=== PATIENT | male | born 1960 | race African-American/Black ===

== ENCOUNTER 2023-02-09 21:04 | Emergency (ER) | payer MEDICAID ==
[~2023-02-09] VITALS: Ht 170.2 cm; Wt 70.0 kg
[2023-02-09 21:07] VITALS: TEMP 98.7; O2SAT 99
[2023-02-09] MEDS ORDERED: IBUPROFEN 600MG TABLET PO ONE (21:30)
[2023-02-09] MEDS ORDERED: IBUP-2029 MT (23:08)
[2023-02-09 23:33] VITALS: BP 132/87; PULSE 87; RESP 18
== END 2023-02-09 23:56 | disposition home or self-care (01) ==
LOC: ER 21:04
DX: S93.602A Unspecified sprain of left foot, initial encounter (principal); I89.0 Lymphedema, not elsewhere classified; W18.39XA Other fall on same level, initial encounter; Y93.89 Activity, other specified; Y92.89 Other specified places as the place of occurrence of the external cause; Y99.8 Other external cause status
CPT/HCPCS: 73620; 99283

== ENCOUNTER 2023-02-10 06:19 | Inpatient (IN) | payer MEDICAID ==
[~2023-02-10] VITALS: Ht 162.6 cm; Wt 77.1 kg
[~2023-02-10 06:19] MED LIST: IBUP-2029 MT
[2023-02-10] MEDS ORDERED: OXYCODONE HCL/ACETAMINOPHEN 5/325MG TABLET PO ONE (07:45)
[2023-02-10 08:17] LABS: EOSINOPHILS % 1.6 % (0.0-5.0); HEMATOCRIT. 41.4 % (42.0-52.0); HEMOGLOBIN. 13.3 g/dL (14.0-18.0); LYMPHOCYTES % 35.3 % (20.0-50.0); MEAN CORPUSCULAR HEMOGLOBIN 26.9 pg (28.0-32.0); MEAN CORPUSCULAR VOLUME 83.9 fL (80.0-94.0); MEAN PLATELET VOLUME 7.5 fl (7.4-10.4); MONOCYTES % 8.3 % (2.0-8.0); NEUTROPHILS % 53.8 % (40.0-76.0); PLATELET 304 x1000/uL (130-400); RED BLOOD CELL COUNT 4.94 mill/uL (4.7-6.1); RED CELL DISTRIBUTION WIDTH 18.7 % (11.6-14.6); WHITE BLOOD COUNT 7.5 x1000/uL (4.5-11.0)
[2023-02-10 08:28] LABS: INR 1.1; PROTHROMBIN TIME 11.7 sec (9.6-11.0)
[2023-02-10 08:43] LABS: ALANINE AMINOTRANSFERASE 9 IU/L (10-49); ALBUMIN 4.3 g/dL (3.2-4.8); ASPARTATE AMINOTRANSFERASE 23 IU/L (<34); BILIRUBIN TOTAL 0.7 mg/dL (0.1-1.0); CARBON DIOXIDE 25 mEq/L (21-32); CHLORIDE 101 mEq/L (98-107); CREATININE 0.8 mg/dL (0.6-1.3); GLUCOSE 84 mg/dL (70-105); POTASSIUM 5.3 mEq/L (3.5-5.1); PROTEIN TOTAL 8.4 g/dL (6.0-8.3); SODIUM 131 mEq/L (136-145); UREA NITROGEN BLOOD 27 mg/dL (9-23)
[2023-02-10] MEDS ORDERED: OXYCODONE HCL/ACETAMINOPHEN 5/325MG TABLET PO NR (09:00)
[2023-02-10 16:00] VITALS: BP 120/67; PULSE 99; RESP 19; TEMP 98
[2023-02-10 16:40] LABS: CLARITY URINE TURBID (CLEAR); COLOR URINE YELLOW (YELLOW); GLUCOSE URINE NEGATIVE (NEGATIVE); KETONES URINE TRACE (NEGATIVE); LEUKOCYTE ESTERASE URINE 3+ (NEGATIVE); NITRITE URINE NEGATIVE (NEGATIVE); OCCULT BLOOD URINE NEGATIVE (NEGATIVE); PROTEIN URINE TRACE (NEGATIVE); SPECIFIC GRAVITY URINE 1.019 (1.005-1.030); UROBILINOGEN URINE 0.2 E.U./dL (0.2-1.0)
[2023-02-10 17:02] LABS: BACTERIA URINE 3+; SQUAMOUS EPITHELIAL CELL URINE FEW /lpf (RARE/1+)
[2023-02-10 17:03] LABS: RBC URINE 0-2 /hpf (0-2); TRIPLE PHOSPHATE CRYSTAL URINE 1+ /lpf; WBC URINE 25-50 /hpf (0-2)
[2023-02-10] MEDS ORDERED: NALOXONE HCL 0.4MG/ML VIAL IV PRN (17:15)
[2023-02-10] MEDS ORDERED: ONDANSETRON HCL 4MG/2ML INJ IV PRN (17:15)
[2023-02-10] MEDS: HYDROCODONE/ACETAMINOPHEN 5/325MG TABLET PO PRN (17:28)
[2023-02-10] MEDS ORDERED: LEVOFLOXACIN 500MG PREMIX 100 ML IV SCH (18:00)
[2023-02-10] MEDS ORDERED: VANCOMYCIN 1500MG in DEXTROSE 5% WATER 250ML IV NR (19:30)
[2023-02-10 20:00] VITALS: BP 117/78; PULSE 105; RESP 18; TEMP 97
[2023-02-11] VITALS: BP 120/72; PULSE 99; RESP 18; TEMP 97
[2023-02-11] MEDS ORDERED: LEVOFLOXACIN 500MG PREMIX 100 ML IV SCH ×2 (02:00→21:00)
[2023-02-11 04:00] VITALS: BP 124/76; PULSE 95; RESP 18; TEMP 97.2
[2023-02-11] MEDS: HYDROCODONE/ACETAMINOPHEN 5/325MG TABLET PO PRN ×3 (06:01→18:25)
[2023-02-11] MEDS: VANCOMYCIN 750MG PREMIX 150 ML IV SCH ×2 (06:02→19:31)
[2023-02-11 08:00] VITALS: BP 111/88; PULSE 112; RESP 20; TEMP 98
[2023-02-11 12:00] VITALS: BP 121/71; PULSE 97; RESP 20; TEMP 98.2
[2023-02-11] MEDS ORDERED: ENOXAPARIN 40MG/0.4ML SYR SUBCUT SCH (12:00)
[2023-02-11] MEDS: TAMSULOSIN HCL 0.4MG SR CAPSULE PO SCH (12:01)
[2023-02-11] MEDS ORDERED: PHENYLEPHRINE HCL 0.5% 15ML NASAL SPRAY BOTHNSTRLS PRN (12:30)
[2023-02-11] MEDS ORDERED: PHENYLEPHRINE HCL 1% BOTHNSTRLS PRN (13:21)
[2023-02-11 16:00] VITALS: BP 115/77; PULSE 106; RESP 20; TEMP 97.5
[2023-02-11 20:00] VITALS: BP 121/76; PULSE 138; RESP 18; TEMP 97.7
[2023-02-11 20:18] LABS: *AMPHETAMINES SCREEN URINE NEGATIVE (NEGATIVE); *BARBITURATES SCREEN URINE NEGATIVE (NEGATIVE); *BENZODIAZEPINES SCREEN URINE NEGATIVE (NEGATIVE); *COCAINE SCREEN URINE NEGATIVE (NEGATIVE); CANNABINOID URINE SCREEN NEGATIVE (NEGATIVE); ECSTASY MDMA SCREEN URINE NEGATIVE (NEGATIVE); METHADONE URINE SCREEN Neg (NEGATIVE); OPIATES URINE SCREEN PRESUMPTIVE POSITIVE (NEGATIVE); PHENCYCLIDINE URINE SCREEN NEGATIVE (NEGATIVE)
[2023-02-12] VITALS (7 sets, daily range): BP systolic 102–116; BP diastolic 55–77; PULSE 52–138; RESP 18–20; TEMP 95–97.9
[2023-02-12] MEDS: METOPROLOL TARTRATE 50MG TABLET PO SCH ×3 (01:30→20:22)
[2023-02-12 03:14] LABS: BASOPHILS % 0.8 % (0.0-2.0); EOSINOPHILS % 2.3 % (0.0-5.0); HEMATOCRIT. 38.2 % (42.0-52.0); HEMOGLOBIN. 12.2 g/dL (14.0-18.0); LYMPHOCYTES % 37.7 % (20.0-50.0); MEAN CORPUSCULAR HEMOGLOBIN 26.3 pg (28.0-32.0); MEAN CORPUSCULAR HGB CONC 31.9 g/dL (31.0-37.0); MEAN CORPUSCULAR VOLUME 82.6 fL (80.0-94.0); MEAN PLATELET VOLUME 7.4 fl (7.4-10.4); MONOCYTES % 11.4 % (2.0-8.0); NEUTROPHILS % 47.8 % (40.0-76.0); PLATELET 266 x1000/uL (130-400); RED BLOOD CELL COUNT 4.63 mill/uL (4.7-6.1); RED CELL DISTRIBUTION WIDTH 18.8 % (11.6-14.6); WHITE BLOOD COUNT 5.3 x1000/uL (4.5-11.0)
[2023-02-12 03:23] LABS: CALCIUM 9.6 mg/dL (8.7-10.4); CARBON DIOXIDE 23 mEq/L (21-32); CHLORIDE 104 mEq/L (98-107); CREATININE 0.9 mg/dL (0.6-1.3); GLUCOSE 83 mg/dL (70-105); POTASSIUM 4.3 mEq/L (3.5-5.1); SODIUM 134 mEq/L (136-145); UREA NITROGEN BLOOD 24 mg/dL (9-23)
[2023-02-12] MEDS: VANCOMYCIN 750MG PREMIX 150 ML IV SCH (06:31)
[2023-02-12] MEDS: TAMSULOSIN HCL 0.4MG SR CAPSULE PO SCH (09:25)
[2023-02-12] MEDS: HYDROCODONE/ACETAMINOPHEN 5/325MG TABLET PO PRN (19:23)
[2023-02-12] MEDS: MEROPENEM 1,000 MG in SODIUM CHLORIDE 0.9% 100 ML IV SCH (20:19)
[2023-02-13] VITALS: BP 121/78; PULSE 78; RESP 19; TEMP 97.7
[2023-02-13] MEDS: VANCOMYCIN 750MG PREMIX 150 ML IV SCH ×2 (01:07→19:56)
[2023-02-13 04:00] VITALS: BP 107/78; PULSE 138; RESP 19; TEMP 96.2
[2023-02-13] MEDS: MEROPENEM 1,000 MG in SODIUM CHLORIDE 0.9% 100 ML IV SCH ×3 (05:19→22:54)
[2023-02-13 08:00] VITALS: BP 124/77; PULSE 19; RESP 19; TEMP 98.1
[2023-02-13] MEDS: TAMSULOSIN HCL 0.4MG SR CAPSULE PO SCH (09:16)
[2023-02-13] MEDS: HYDROCODONE/ACETAMINOPHEN 5/325MG TABLET PO PRN (09:17)
[2023-02-13] MEDS: METOPROLOL TARTRATE 50MG TABLET PO SCH ×2 (09:17→20:32)
[2023-02-13] MEDS ORDERED: SODIUM CHLORIDE 0.9% 500 ML IV ONE (10:45)
[2023-02-13 12:00] VITALS: BP_SYST 130; BP_SYST 95; BP_DIAS 29; BP_DIAS 58; PULSE 70; PULSE 74; RESP 19; RESP 20; TEMP 98.1; TEMP 98.2
[2023-02-13 16:00] VITALS: BP 109/72; PULSE 66; RESP 18; TEMP 98.3
[2023-02-13 20:00] VITALS: BP 115/86; PULSE 140; RESP 20; TEMP 97.6
[2023-02-14] VITALS: BP 122/78; PULSE 71; RESP 20; TEMP 97.5
[2023-02-14 04:00] VITALS: BP 123/76; PULSE 136; RESP 18; TEMP 98
[2023-02-14] MEDS: MEROPENEM 1,000 MG in SODIUM CHLORIDE 0.9% 100 ML IV SCH ×3 (06:01→21:13)
[2023-02-14 08:00] VITALS: BP 112/86; PULSE 93; RESP 20; TEMP 96
[2023-02-14] MEDS: TAMSULOSIN HCL 0.4MG SR CAPSULE PO SCH (09:05)
[2023-02-14] MEDS: METOPROLOL TARTRATE 50MG TABLET PO SCH ×2 (09:05→20:43)
[2023-02-14 09:23] LABS: CALCIUM 9.9 mg/dL (8.7-10.4); CARBON DIOXIDE 24 mEq/L (21-32); CHLORIDE 105 mEq/L (98-107); CREATININE 0.9 mg/dL (0.6-1.3); GLUCOSE 73 mg/dL (70-105); POTASSIUM 4.1 mEq/L (3.5-5.1); SODIUM 139 mEq/L (136-145); UREA NITROGEN BLOOD 25 mg/dL (9-23)
[2023-02-14 09:35] LABS: BASOPHILS % 0.5 % (0.0-2.0); EOSINOPHILS % 1.8 % (0.0-5.0); HEMOGLOBIN. 13.7 g/dL (14.0-18.0); LYMPHOCYTES % 37.4 % (20.0-50.0); MEAN CORPUSCULAR HEMOGLOBIN 26.4 pg (28.0-32.0); MEAN CORPUSCULAR HGB CONC 31.2 g/dL (31.0-37.0); MEAN CORPUSCULAR VOLUME 84.8 fL (80.0-94.0); MEAN PLATELET VOLUME 7.9 fl (7.4-10.4); MONOCYTES % 12.7 % (2.0-8.0); NEUTROPHILS % 47.6 % (40.0-76.0); PLATELET 297 x1000/uL (130-400); RED BLOOD CELL COUNT 5.19 mill/uL (4.7-6.1); RED CELL DISTRIBUTION WIDTH 19.6 % (11.6-14.6); WHITE BLOOD COUNT 8.1 x1000/uL (4.5-11.0)
[2023-02-14] MEDS: VANCOMYCIN 750MG PREMIX 150 ML IV SCH (12:00)
[2023-02-14 16:00] VITALS: BP 101/76; PULSE 110; RESP 20; TEMP 97.6
[2023-02-14 20:00] VITALS: BP 117/76; PULSE 142; PULSE 155; RESP 18; TEMP 98.4
[2023-02-15] VITALS: BP 94/62; PULSE 120; RESP 18; TEMP 97.9
[2023-02-15 04:00] VITALS: BP 115/58; PULSE 64; RESP 18; TEMP 97.7
[2023-02-15] MEDS: MEROPENEM 1,000 MG in SODIUM CHLORIDE 0.9% 100 ML IV SCH ×3 (05:13→21:13)
[2023-02-15] MEDS: VANCOMYCIN 750MG PREMIX 150 ML IV SCH (05:57)
[2023-02-15 08:23] VITALS: BP_SYST 100; BP_SYST 110; BP_DIAS 74; PULSE 140; RESP 20; TEMP 98
[2023-02-15] MEDS: METOPROLOL TARTRATE 50MG TABLET PO SCH (09:37)
[2023-02-15] MEDS: TAMSULOSIN HCL 0.4MG SR CAPSULE PO SCH (09:38)
[2023-02-15 12:00] VITALS: BP 101/71; PULSE 79; RESP 20; TEMP 97
[2023-02-15] MEDS ORDERED: SODIUM CHLORIDE 0.9% 500 ML IV ONE (12:30)
[2023-02-15] MEDS: DILTIAZEM HCL 60MG TABLET PO SCH ×3 (12:30→21:13)
[2023-02-15] MEDS: HYDROCODONE/ACETAMINOPHEN 5/325MG TABLET PO PRN (12:46)
[2023-02-15] MEDS ORDERED: ENOXAPARIN 80MG/0.8ML SYR SUBCUT SCH ×2 (13:00→14:00)
[2023-02-15 16:00] VITALS: BP 100/72; PULSE 136; RESP 22; TEMP 97.2
[2023-02-15 20:00] VITALS: BP 113/78; PULSE 138; RESP 18; TEMP 97
[2023-02-15] MEDS: ENOXAPARIN 80MG/0.8ML SYR SUBCUT SCH ×2 (21:00→21:13)
[2023-02-16 00:29] VITALS: BP 117/78; PULSE 73; RESP 20; TEMP 97.3
[2023-02-16 04:11] VITALS: BP 111/76; PULSE 70; RESP 19; TEMP 97.8
[2023-02-16] MEDS: MEROPENEM 1,000 MG in SODIUM CHLORIDE 0.9% 100 ML IV SCH ×3 (05:07→21:35)
[2023-02-16] MEDS: DILTIAZEM HCL 60MG TABLET PO SCH ×3 (05:09→21:23)
[2023-02-16 08:00] VITALS: BP 110/65; PULSE 71; RESP 20; TEMP 97.7
[2023-02-16] MEDS: ENOXAPARIN 80MG/0.8ML SYR SUBCUT SCH ×3 (08:58→21:00)
[2023-02-16] MEDS: TAMSULOSIN HCL 0.4MG SR CAPSULE PO SCH (09:01)
[2023-02-16] MEDS ORDERED: NALOXONE HCL 0.4MG/ML VIAL IV PRN (10:00)
[2023-02-16] MEDS ORDERED: TRAMADOL 50MG TABLET PO PRN (10:00)
[2023-02-16 12:00] VITALS: BP 137/61; PULSE 70; RESP 20; TEMP 97.6
[2023-02-16] MEDS: ASPIRIN 81MG TABLET PO SCH (14:24)
[2023-02-16 16:00] VITALS: BP 109/66; PULSE 77; RESP 20; TEMP 97.7
[2023-02-16 20:00] VITALS: BP_SYST 97; BP_DIAS 28; BP_DIAS 59; PULSE 72; RESP 20; TEMP 97.8
[2023-02-16] MEDS ORDERED: ATORVASTATIN CALCIUM 40MG TABLET PO SCH (21:00)
[2023-02-17] VITALS: BP 96/58; PULSE 72; RESP 18; TEMP 96.8
[2023-02-17 04:00] VITALS: BP 143/90; PULSE 94; RESP 20; TEMP 97.2
[2023-02-17] MEDS: DILTIAZEM HCL 60MG TABLET PO SCH (06:00)
[2023-02-17] MEDS: MEROPENEM 1,000 MG in SODIUM CHLORIDE 0.9% 100 ML IV SCH (06:16)
[2023-02-17 08:00] VITALS: BP 99/67; PULSE 71; RESP 20; TEMP 97.7
[2023-02-17] MEDS: ASPIRIN 81MG TABLET PO SCH (09:00)
[2023-02-17] MEDS: TAMSULOSIN HCL 0.4MG SR CAPSULE PO SCH (09:00)
[2023-02-17] MEDS: ENOXAPARIN 80MG/0.8ML SYR SUBCUT SCH (09:00)
[2023-02-17 09:31] VITALS: BP 99/67; PULSE 71; TEMP 97.7; O2SAT 96
== END 2023-02-17 10:52 | disposition home or self-care (01) | DRG 383 ==
LOC: ER 06:19 → 4WST 10:34 → EDBEDREQ 10:48 → EDBEDREQTM 10:48 → 6EST 02-12 05:01 → 8WST 02-13 13:46
PROVIDERS: ADMIT Internal Medicine; ATTEND Internal Medicine
DX: L03.116 Cellulitis of left lower limb (principal); E87.1 Hypo-osmolality and hyponatremia; E87.5 Hyperkalemia; N39.0 Urinary tract infection, site not specified; B96.4 Proteus (mirabilis) (morganii) as the cause of diseases classified elsewhere; I10 Essential (primary) hypertension; I48.20 Chronic atrial fibrillation, unspecified; I48.92 Unspecified atrial flutter; I73.9 Peripheral vascular disease, unspecified; N40.1 Benign prostatic hyperplasia with lower urinary tract symptoms; F17.210 Nicotine dependence, cigarettes, uncomplicated; Z59.00 Homelessness unspecified; Z86.12 Personal history of poliomyelitis; Z99.3 Dependence on wheelchair
CPT/HCPCS: 36415; 80048; 80053; 80202; 80305; 81003; 85025; 87077; 87186; 93923; 99285; C1893; J1650; J1956; J2185; J3370; J7050; J7060